=== PATIENT | female | born 1990 | race Two or more races ===

== ENCOUNTER 2017-01-10 20:53 | Emergency (ER) | payer MEDICAID ==
[~2017-01-10] VITALS: Ht 162.6 cm; Wt 52.6 kg
== END 2017-01-10 21:29 | disposition home or self-care (01) ==
LOC: ER 20:56
DX: J02.9 Acute pharyngitis, unspecified (principal)
CPT/HCPCS: 99281; A4606; Z7610; Z7502

== ENCOUNTER 2017-04-05 13:53 | Emergency (ER) | payer MEDICAID ==
[~2017-04-05] VITALS: Ht 160 cm; Wt 45.4 kg
[2017-04-05 14:01] VITALS: BP 141/75
== END 2017-04-05 14:20 | disposition home or self-care (01) ==
LOC: ER 13:57
DX: K08.89 Other specified disorders of teeth and supporting structures (principal)
CPT/HCPCS: A4606; Z7610

== ENCOUNTER 2017-05-23 22:58 | Emergency (ER) | payer MEDICAID ==
[~2017-05-23] VITALS: Ht 154.9 cm; Wt 40.8 kg
--- NOTE | 2017-05-23 23:05 | NUR ---
TO BED [age] YO FEMALE BIBSELF, C/O SORETHROAT X 3 DAYS. AFEBRILE. VSS. INITIATED COMFORT MEASURES. AWAITING FOR ER MD FLANAGAN.
--- NOTE | 2017-05-23 23:19 | NUR ---
Dr Barragan at bedside for eval.
--- NOTE | 2017-05-23 23:30 | NUR ---
Patient discharged to home in stable condition. Written and verbal after care instructions given. Patient verbalizes understanding of instruction. Patient is ambulatory with steady gait, no further complaints.
[2017-05-23 23:31] VITALS: BP 105/68
== END 2017-05-23 23:31 | disposition home or self-care (01) ==
LOC: ER 22:59
DX: J02.9 Acute pharyngitis, unspecified (principal)
CPT/HCPCS: A4606; Z7610

== ENCOUNTER 2017-08-16 10:12 | Emergency (ER) | payer MEDICAID ==
[~2017-08-16] VITALS: Ht 154.9 cm; Wt 45.4 kg
[2017-08-16 10:43] VITALS: BP 126/89
== END 2017-08-16 11:32 | disposition home or self-care (01) ==
LOC: ER 10:14
DX: K62.89 Other specified diseases of anus and rectum (principal)
CPT/HCPCS: A4606; Z7610